=== PATIENT | male | born 1980 | race Caucasian/White ===

== ENCOUNTER 2023-12-06 17:09 | Emergency (ER) | payer MEDICAID ==
[~2023-12-06] VITALS: Ht 185.4 cm; Wt 110.2 kg
[~2023-12-06 17:09] MED LIST: NABU-139 PO; TRAM50TA2 PO
[2023-12-06 18:08] VITALS: TEMP 98.2
[2023-12-06 23:00] VITALS: BP 123/75; PULSE 61; RESP 17; O2SAT 96
== END 2023-12-06 23:47 | disposition home or self-care (01) ==
LOC: ER 17:09
DX: K40.90 Unilateral inguinal hernia, without obstruction or gangrene, not specified as recurrent (principal); Z79.899 Other long term (current) drug therapy
CPT/HCPCS: 99281